=== PATIENT | male | born 1985 | race Caucasian/White ===

== ENCOUNTER 2017-10-25 13:59 | Emergency (ER) | payer OTHER ==
[~2017-10-25 13:59] MED LIST: AMLO2.5T PO; FAMO40TA PO; GABA600T PO; IBUP1TAB7 PO; PANT20TA2 PO; TIZA4 PO; VANC1INJ2 IV
[2017-10-25 14:02] VITALS: BP 127/78; PULSE 85; RESP 20; TEMP 97.5; O2SAT 100
[2017-10-25 15:40] VITALS: BP 140/67; PULSE 75; RESP 16; O2SAT 100
[2017-10-25] MEDS ORDERED: PROCHLORPERAZINE INJ 10 MG/2 ML VIAL IV PUSH ONE (15:45)
[2017-10-25] MEDS ORDERED: SODIUM CHLOR 0.9% 1000 ML INJ 1,000 ML IV ONE (15:45)
--- NOTE | 2017-10-25 15:51 | PD ---
HPI Chief Complaint: Headache Time Seen by Provider: 15:31 Travel History International Travel<30 days: No Contact w/Intl Traveler<30days: No Traveled to known affect area: No History of Present Illness HPI 32yo M with PMH of migraine headache, chronic back and neck pain here with c/o left sided headache for 2 days. States it would go away when he lie down in the dark room but has not gone away since 11am today. Associated with nausea, photophobia, phonophobia. Denies any fever, abdominal pain, new focal weakness or numbness. Said he had a myelogram 2 days ago for his neck. Pt said he was also having left sided chest pain since yesterday. Pain is constant, pressure like. Denies any family history of sudden cardiac or brain aneurysms. PFSH Past Medical History Arthritis: Yes Asthma: Yes Blood Disorders: No Heart Rhythm Problems: No Cancer: No Cardiovascular Problems: Yes High Cholesterol: No Chest Pain: Yes Congestive Heart Failure: No Diabetes: Yes (HYPOGLYCEMIA) Patient Takes Glucophage: No Diminished Hearing: No Endocrine: Yes Gastrointestinal Disorders: Yes (GERD) GERD: Yes Genitourinary: Yes (dribbling, difficulty starting) Hepatitis: No Hiatal Hernia: No Immune Disorder: No Musculoskeletal: Yes Neurologic: Yes (RIGHT HIP LEG FOOT NUMBNESS AND PAIN) Psychiatric: No Reproductive: No Respiratory: Yes (ASTHMA) Immunizations Current: Yes Thyroid Disease: No Ulcer: Yes Past Surgical History Abdominal Surgery: No AICD: No Body Medical Devices: metal in l hand, 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 Cardiac Surgery: No Ear Surgery: No Eye Surgery: No Genitourinary Surgery: No Gynecologic Surgery: No Joint Replacement: No Neurologic Surgery: Yes (LUMBAR LAMNY 2016) Oral Surgery: No Pacemaker: No Thoracic Surgery: No Other Surgery: Yes (GLASS REMOVED LEFT HEEL) Social History Alcohol Use: No Tobacco Use: No Substance Use: No Allergies-Medications (Allergen,Severity, Reaction): Coded Allergies: penicillin G (Unverified Allergy, Mild, RASH/HIVES, 10/25/17) acetaminophen (Unverified Adverse Reaction, Severe, CAUSES VOMITING, ) aspirin (Unverified Adverse Reaction, Severe, STATES VOMITING, 10/25/17) Reported Meds & Prescriptions Reported Meds & Active Scripts Active Zanaflex (Tizanidine HCl) 4 Mg Tab 4 Mg PO TID PRN Reported Cymbalta DR (Duloxetine HCl) 20 Mg Capdr 20 Mg PO DAILY Gabapentin 600 Mg Tab 600 Mg PO HS Famotidine 40 Mg Tab 40 Mg PO BID Ibuprofen 800 Mg Tab 800 Mg PO TID Review of Systems Except as stated in HPI: all other systems reviewed are Neg Physical Exam Narrative GENERAL: 32yo M in moderate distress. SKIN: Focused skin assessment warm/dry. HEAD: Atraumatic. Normocephalic. EYES: Pupils equal and round at 4mm bilaterally. EOMI. ENT: No nasal bleeding or discharge. Mucous membranes pink and moist. NECK: Trachea midline. No JVD. CARDIOVASCULAR: Regular rate and rhythm. No murmur appreciated. RESPIRATORY: No accessory muscle use. Clear to auscultation. Breath sounds equal bilaterally. GASTROINTESTINAL: Abdomen soft, non-tender, nondistended. MUSCULOSKELETAL: No obvious deformities. No clubbing. No cyanosis. No edema. NEUROLOGICAL: Awake and alert. No obvious cranial nerve deficits. Motor grossly within normal limits. Normal speech. Sensation intact. PSYCHIATRIC: Appropriate mood and affect; insight and judgment normal. Data Data Last Documented VS Vital Signs Date Time Temp Pulse Resp B/P (MAP) Pulse Ox O2 Delivery O2 Flow Rate FiO2 10/25/17 15:40 75 16 140/67 (91) 100 Room Air 10/25/17 14:[address] Brain W/O Iv Contrast(Rout) (10/25/17 ) Prochlorperazine Inj (Compazine Inj) (10/25/17 15:45) Sodium Chlor 0.9% 1000 Ml Inj (Ns 1000 M (10/25/17 15:45) Electrocardiogram (10/25/17 15:44) Basic Metabolic Panel (Bmp) (10/25/17 15:44) Complete Blood Count With Diff (10/25/17 15:44) Magnesium (Mg) (10/25/17 15:44) Troponin I (10/25/17 15:44) Lipase (10/25/17 15:44) Chest, Single Ap (10/25/17 15:44) Influenzae A/B Antigen (10/25/17 15:53) Ketorolac Inj (Toradol Inj) (10/25/17 17:00) Labs Laboratory Tests Test 10/25/17 15:50 White Blood Count 7.5 TH/MM3 Red Blood Count 5.37 MIL/MM3 Hemoglobin 15.9 GM/DL Hematocrit 45.3 % Mean Corpuscular Volume 84.4 FL Mean Corpuscular Hemoglobin 29.6 PG Mean Corpuscular Hemoglobin Concent 35.1 % Red Cell Distribution Width 13.6 % Platelet Count 231 TH/MM3 Mean Platelet Volume 8.3 FL Neutrophils (%) (Auto) 78.1 % Lymphocytes (%) (Auto) 14.9 % Monocytes (%) (Auto) 6.0 % Eosinophils (%) (Auto) 0.4 % Basophils (%) (Auto) 0.6 % Neutrophils # (Auto) 5.9 TH/MM3 Lymphocytes # (Auto) 1.1 TH/MM3 Monocytes # (Auto) 0.5 TH/MM3 Eosinophils # (Auto) 0.0 TH/MM3 Basophils # (Auto) 0.0 TH/MM3 CBC Comment DIFF FINAL Differential Comment Blood Urea Nitrogen 10 MG/DL Creatinine 1.01 MG/DL Random Glucose 95 MG/DL Calcium Level 9.5 MG/DL Magnesium Level 2.2 MG/DL Sodium Level 138 MEQ/L Potassium Level 4.1 MEQ/L Chloride Level 101 MEQ/L Carbon Dioxide Level 30.2 MEQ/L Anion Gap 7 MEQ/L Estimat Glomerular Filtration Rate 85 ML/MIN Troponin I 0.04 NG/ML Lipase 155 U/L [facility] Medical Decision Making Medical Screen Exam Complete: Yes Emergency Medical Condition: Yes Interpretation(s) EKG: NSR 76bpm. Normal axis. No ST segment elevation or depression. Differential Diagnosis Migraine headache vs. influenza vs. tension headache vs. atypical chest pain Narrative Course 32yo M with migraine like headache. CT brain negative. Pt also with atypical chest pain. Labs reviewed, no leukocytosis. BMP unremarkable. Troponin 0.04. CXR negative. Pt given compazine and toradol. Pt reevaluated at bedside and headache and chest pain resolved. Do not think this is cardiac. Return precautions given. Diagnosis Primary Impression: Migraine Qualified Codes: G43.909 - Migraine, unspecified, not intractable, without status migrainosus Additional Impression: Atypical chest pain Patient Instructions: General Instructions Departure Forms: Tests/Procedures Additional Instructions: Please follow up with your primary care physician in 2-3 days. Return to the ED if symptoms worsen. Disposition: 01 DISCHARGE HOME Condition: Stable Chelle Landers Oct 25, 2017 15:51
[2017-10-25] MEDS ORDERED: DULO20 PO (16:06)
[2017-10-25] MEDS ORDERED: FAMO40TA PO (16:06)
[2017-10-25] MEDS ORDERED: GABA600T PO (16:06)
--- NOTE | 2017-10-25 16:21 | RADRPT ---
EXAM DATE/TIME: 10/25/2017 15:57 [facility] COMPARISON: CHEST SINGLE AP, June 11, 2016, 19:57. INDICATIONS : Migranes for 2 days. Chest pains yesterday. MEDICAL HISTORY : Gastroesophageal reflux disease. Asthma. Hypoglycemia. SURGICAL HISTORY : Lumbar laminectomy. ENCOUNTER: Initial ACUITY: 2 days PAIN SCORE: 0/10 LOCATION: Bilateral chest FINDINGS: A single view of the chest demonstrates the lungs to be symmetrically aerated without evidence of mas s, infiltrate or effusion. The cardiomediastinal contours are unremarkable. Osseous structures are intact. CONCLUSION: No acute disease. Humphrey Stoll MD FACR on October 25, 2017 at 16:19 Board Certified Radiologist. This report was verified electronically.
--- NOTE | 2017-10-25 16:27 | RADRPT ---
EXAM DATE/TIME: 10/25/2017 16:18 [facility] COMPARISON: No previous studies available for comparison. INDICATIONS : Headaches for one day, post myelogram. RADIATION DOSE: 56.35 CTDIvol (mGy) MEDICAL HISTORY : Cardiovascular disease. Diabetes mellitus type 2. SURGICAL HISTORY : None. ENCOUNTER: Initial ACUITY: 1 day PAIN SCALE: 9/10 LOCATION: Bilateral cranial TECHNIQUE: Multiple contiguous axial images were obtained of the head. Using automated exposure control and adj ustment of the mA and/or kV according to patient size, radiation dose was kept as low as reasonably a chievable to obtain optimal diagnostic quality images. DICOM format image data is available electro nically for review and comparison. FINDINGS: CEREBRUM: The ventricles are normal for age. No evidence of midline shift, mass lesion, hemorrhage or acute in farction. No extra-axial fluid collections are seen. POSTERIOR FOSSA: The cerebellum and brainstem are intact. The 4th ventricle is midline. The cerebellopontine angle i s unremarkable. EXTRACRANIAL: The visualized portion of the orbits is intact. SKULL: The calvaria is intact. No evidence of skull fracture. CONCLUSION: Normal examination for a patient of this age. Shimon Magallanes MD on October 25, 2017 at 16:24 Board Certified Radiologist. This report was verified electronically.
[2017-10-25 16:43] LABS: AUTOMATED NEUTROPHIL # 5.9 TH/MM3 (1.8-7.7); BASOPHIL % 0.6 % (0.0-2.0); EOSINOPHIL % 0.4 % (0.0-4.0); HEMATOCRIT 45.3 % (39.0-51.0); HEMOGLOBIN 15.9 GM/DL (13.0-17.0); LYMPH % 14.9 % (9.0-44.0); LYMPHOCYTE # 1.1 TH/MM3 (1.0-4.8); MEAN CELL VOLUME 84.4 FL (80.0-100.0); MEAN CORPUSCULAR HEMOGLOBIN 29.6 PG (27.0-34.0); MEAN CORPUSCULAR HGB CONC 35.1 % (32.0-36.0); MEAN PLATELET VOLUME 8.3 FL (7.0-11.0); MONOCYTE # 0.5 TH/MM3 (0-0.9); NEUT % 78.1 % (16.0-70.0); PLATELET COUNT 231 TH/MM3 (150-450); RED BLOOD COUNT 5.37 MIL/MM3 (4.50-5.90); RED CELL DISTRIBUTION WIDTH 13.6 % (11.6-17.2); WHITE BLOOD COUNT 7.5 TH/MM3 (4.0-11.0)
[2017-10-25 16:57] LABS: BICARBONATE 30.2 MEQ/L (21.0-32.0); CALCIUM 9.5 MG/DL (8.5-10.1); CREATININE 1.01 MG/DL (0.60-1.30); MAGNESIUM 2.2 MG/DL (1.5-2.5)
[2017-10-25] MEDS ORDERED: KETOROLAC TROMETHAMINE 30 MG/ML (IVP) VIAL IV PUSH ONE (17:00)
[2017-10-25 17:01] LABS: TROPONIN I 0.04 NG/ML (0.02-0.05)
[2017-10-25 17:30] VITALS: BP 133/63; PULSE 85; RESP 16; O2SAT 98
--- NOTE | 2017-10-26 13:30 | EKG ---
Date Performed: 10/25/2017 Time Performed: 15:57:06 PTAGE: 32 years EKG: Sinus rhythm Since the prior tracing, there has been no significant change NORMAL ECG PREVIOUS TRACING : 05/16/2016 11.14 DOCTOR: Rigo Petersen Interpretating Date/Time 10/26/2017 13:29:12
== END 2017-10-25 19:02 | disposition home or self-care (01) ==
LOC: NEPE 13:59
DX: G43.909 Migraine, unspecified, not intractable, without status migrainosus (principal); R07.89 Other chest pain; R11.0 Nausea; M19.90 Unspecified osteoarthritis, unspecified site; J45.909 Unspecified asthma, uncomplicated; E11.9 Type 2 diabetes mellitus without complications; K21.9 Gastro-esophageal reflux disease without esophagitis
CPT/HCPCS: 70450; 71045; 80048; 83690; 83735; 84484; 85025; 87804; 93005; 96361; 96374; 96375; 99285; J0780; J1885; J7030

== ENCOUNTER → 2017-10-30 | Day surgery (SDC) | payer OTHER ==
[~2017-10-30] MED LIST changes: -AMLO2.5T PO; +CHLORHEXIDINE GLUCONATE 2 % 1 PACK (2 CLOTHS) TOPICAL PRN; +DULO20 PO; +INSULIN HUMAN REGULAR 1,000 UNITS/10 ML VIAL SQ PRN; +LACTATED RINGER'S 1000 ML IV PRN; +METOPROLOL TARTRATE 25 MG TAB PO PRN; -PANT20TA2 PO; +POVIDONE IODINE 5% (ANTISEPSIS KIT) 4 APPLICATIONS EACH NARE PRN; +SODIUM CHLORID 0.9% 500 ML IV PRN; -VANC1INJ2 IV
[2017-10-30 13:30] VITALS: BP 122/79; PULSE 63; RESP 20; TEMP 98.3; O2SAT 100
== END | disposition home or self-care (01) ==
LOC: HSDC 10:02
PROVIDERS: ATTEND Anesthesiology
DX: R51 Headache (principal); G97.1 Other reaction to spinal and lumbar puncture
CPT/HCPCS: 62273; 94664